=== PATIENT | female | born 1960 | race Caucasian/White ===

== ENCOUNTER 2020-07-17 08:43 | Inpatient (IN) | payer MEDICAID ==
[~2020-07-17] VITALS: Ht 157.5 cm; Wt 94.8 kg
[2020-07-17 10:55] LABS: BASOPHILS % 0.3 % (0.0-2.0); EOSINOPHILS % 0.7 % (0.0-5.0); HEMOGLOBIN. 11.9 g/dL (12.0-16.0); LYMPHOCYTES % 45.1 % (20.0-50.0); MEAN CORPUSCULAR HEMOGLOBIN 25.9 pg (28.0-32.0); MEAN CORPUSCULAR VOLUME 80.8 fL (81.0-99.0); MEAN PLATELET VOLUME 9.4 fl (7.4-10.4); MONOCYTES % 4.9 % (2.0-8.0); PLATELET 220 x1000/uL (130-400); RED BLOOD CELL COUNT 4.58 mill/uL (4.2-5.4); RED CELL DISTRIBUTION WIDTH 14.3 % (11.6-14.6)
[2020-07-17 11:00] LABS: CHLORIDE 108 mEq/L (98-107)
[2020-07-17 11:05] LABS: PROTHROMBIN TIME 10.7 sec (9.6-11.0)
[2020-07-17] MEDS ORDERED: BENAZEPRIL 10MG TABLET PO ONE (11:45)
[2020-07-17] MEDS ORDERED: HYDRALAZINE 20MG/ML VIAL IV PRN (15:00)
[2020-07-17 17:06] VITALS: BP 168/70
[2020-07-17] MEDS ORDERED: DOCUSATE SODIUM 100MG CAPSULE PO PRN (17:15)
[2020-07-17] MEDS ORDERED: IPRATROPIUM/ALBUTEROL 0.5-3(2.5)MG/3ML NEB HHN PRN (17:15)
[2020-07-17] MEDS ORDERED: HYDROCODONE/ACETAMINOPHEN 5/325MG TABLET PO PRN (17:15)
[2020-07-17] MEDS ORDERED: ONDANSETRON HCL 4MG/2ML INJ IV PRN (17:15)
[2020-07-17] MEDS ORDERED: LORAZEPAM 0.5MG TABLET PO PRN (17:15)
[2020-07-17] MEDS ORDERED: ACETAMINOPHEN 325MG TABLET PO PRN (17:15)
[2020-07-17] MEDS: NIFEDIPINE XL 30MG TAB PO SCH (18:15)
[2020-07-17] MEDS: CLONIDINE 0.1MG TABLET PO PRN (18:19)
[2020-07-17] MEDS ORDERED: HYDRALAZINE 10 MG in SODIUM CHLORIDE 0.9% 49.5 ML IV PRN (19:00)
[2020-07-17 20:00] VITALS: BP 130/66
[2020-07-17 22:09] LABS: TOTAL IRON BINDING CAPACITY 417 ug/dL (250-450)
[2020-07-17 22:24] LABS: FOLIC ACID (FOLATE) SERUM >20 ng/mL ng/mL (>5.38)
[2020-07-17 22:31] LABS: FERRITIN 219 ng/mL (10-291)
[2020-07-17 22:35] LABS: VITAMIN B12 SERUM 689 pg/mL (211-911)
[2020-07-17] MEDS ORDERED: IOHEXOL-300 100 ML BOTTLE ONE (23:12)
[2020-07-18 00:30] VITALS: BP 139/65
[2020-07-18 04:00] VITALS: BP 134/67
[2020-07-18] MEDS ORDERED: BENA5TAB6 MT (04:20)
[2020-07-18] MEDS ORDERED: CLON0.1T MT (04:20)
[2020-07-18] MEDS ORDERED: ATOR10TA69 MT (04:20)
[2020-07-18] MEDS ORDERED: ASPI-1497 MT (04:20)
[2020-07-18 07:13] LABS: BASOPHILS % 0.3 % (0.0-2.0); EOSINOPHILS % 1.2 % (0.0-5.0); HEMATOCRIT. 31.7 % (36.0-48.0); HEMOGLOBIN. 10.4 g/dL (12.0-16.0); LYMPHOCYTES % 42.1 % (20.0-50.0); MEAN CORPUSCULAR HEMOGLOBIN 26.2 pg (28.0-32.0); MEAN CORPUSCULAR VOLUME 79.7 fL (81.0-99.0); MEAN PLATELET VOLUME 9.1 fl (7.4-10.4); MONOCYTES % 6.2 % (2.0-8.0); NEUTROPHILS % 50.2 % (40.0-76.0); PLATELET 195 x1000/uL (130-400); RED BLOOD CELL COUNT 3.98 mill/uL (4.2-5.4); RED CELL DISTRIBUTION WIDTH 14.2 % (11.6-14.6)
[2020-07-18 07:24] LABS: CHLORIDE 106 mEq/L (98-107)
[2020-07-18 07:36] LABS: HDL CHOLESTEROL 43 mg/dL (40-59)
[2020-07-18 07:37] LABS: LDL CHOLESTEROL 123 mg/dL (5-100)
[2020-07-18 08:00] VITALS: BP 129/65
[2020-07-18] MEDS: NIFEDIPINE XL 30MG TAB PO SCH (09:00)
[2020-07-18 12:00] VITALS: BP 153/72
[2020-07-18] MEDS ORDERED: IRON SUCROSE COMPLEX 100 MG/5 ML ML IV SCH (14:06)
[2020-07-18 16:00] VITALS: BP 158/72
[2020-07-18 20:00] VITALS: BP 162/71
[2020-07-18] MEDS: HYDROCORTISONE ACETATE 25MG SUPP PR SCH (21:24)
[2020-07-18] MEDS: ATORVASTATIN CALCIUM 10MG TABLET PO SCH (21:25)
[2020-07-18] MEDS: CLONIDINE 0.1MG TABLET PO PRN (21:43)
[2020-07-19] VITALS: BP 140/66
[2020-07-19 04:00] VITALS: BP 138/59
[2020-07-19 06:15] LABS: CHLORIDE 107 mEq/L (98-107)
[2020-07-19 06:24] LABS: BASOPHILS % 0.2 % (0.0-2.0); EOSINOPHILS % 1.2 % (0.0-5.0); HEMATOCRIT. 31.3 % (36.0-48.0); HEMOGLOBIN. 10.3 g/dL (12.0-16.0); LYMPHOCYTES % 49.1 % (20.0-50.0); MEAN CORPUSCULAR HEMOGLOBIN 26.2 pg (28.0-32.0); MEAN CORPUSCULAR VOLUME 79.3 fL (81.0-99.0); MEAN PLATELET VOLUME 9.3 fl (7.4-10.4); MONOCYTES % 5.3 % (2.0-8.0); NEUTROPHILS % 44.2 % (40.0-76.0); PLATELET 200 x1000/uL (130-400); RED BLOOD CELL COUNT 3.94 mill/uL (4.2-5.4); RED CELL DISTRIBUTION WIDTH 13.8 % (11.6-14.6)
[2020-07-19 06:26] LABS: PROTHROMBIN TIME 10.6 sec (9.6-11.0)
[2020-07-19 08:00] VITALS: BP 148/67
[2020-07-19] MEDS: HYDROCORTISONE ACETATE 25MG SUPP PR SCH ×2 (09:38→22:29)
[2020-07-19] MEDS: NIFEDIPINE XL 30MG TAB PO SCH (10:04)
[2020-07-19] MEDS: CLONIDINE 0.1MG TABLET PO PRN (11:44)
[2020-07-19 12:00] VITALS: BP 114/84
[2020-07-19 16:00] VITALS: BP 135/75
[2020-07-19] MEDS ORDERED: DEXTROSE 50% WATER 50ML SYRINGE IV PRN (17:30)
[2020-07-19] MEDS: INSULIN LISPRO (LOW DOSE) 100 UNITS/ML SUBCUT SCH ×2 (17:50→22:28)
[2020-07-19] MEDS: BISACODYL 5MG TABLET PO SCH (17:58)
[2020-07-19] MEDS ORDERED: SORBITOL 70% SOLN 30ML PO SCH ×2 (18:00→22:00)
[2020-07-19] MEDS: METOCLOPRAMIDE HCL 10MG/2ML VIAL IV SCH ×2 (18:32→22:29)
[2020-07-19 20:00] VITALS: BP 143/70
[2020-07-19] MEDS: BLOOD SUGAR DIAGNOSTIC STRIP TEST SCH (21:00)
[2020-07-19] MEDS: ATORVASTATIN CALCIUM 10MG TABLET PO SCH (22:29)
[2020-07-20] VITALS: BP 149/64
[2020-07-20] MEDS: SODIUM CHLORIDE 0.9% 1,000 ML IV SCH ×2 (01:36→14:02)
[2020-07-20] MEDS: METOCLOPRAMIDE HCL 10MG/2ML VIAL IV SCH ×2 (01:37→05:49)
[2020-07-20] MEDS ORDERED: SORBITOL 70% SOLN 30ML PO SCH ×2 (02:00→06:00)
[2020-07-20 04:00] VITALS: BP 127/58
[2020-07-20] MEDS ORDERED: POTASSIUM CHLORIDE 20MEQ TABLET SR PO NR (06:00)
[2020-07-20 06:56] LABS: BASOPHILS % 0.2 % (0.0-2.0); EOSINOPHILS % 0.8 % (0.0-5.0); HEMATOCRIT. 33.5 % (36.0-48.0); HEMOGLOBIN. 11.1 g/dL (12.0-16.0); LYMPHOCYTES % 41.5 % (20.0-50.0); MEAN CORPUSCULAR HEMOGLOBIN 26.4 pg (28.0-32.0); MEAN CORPUSCULAR VOLUME 79.4 fL (81.0-99.0); MONOCYTES % 5.5 % (2.0-8.0); PLATELET 264 x1000/uL (130-400); RED BLOOD CELL COUNT 4.22 mill/uL (4.2-5.4); RED CELL DISTRIBUTION WIDTH 13.8 % (11.6-14.6)
[2020-07-20] MEDS: BLOOD SUGAR DIAGNOSTIC STRIP TEST SCH ×4 (07:20→21:00)
[2020-07-20 07:58] LABS: CHLORIDE 110 mEq/L (98-107)
[2020-07-20 08:00] VITALS: BP 136/74
[2020-07-20] MEDS: HYDROCORTISONE ACETATE 25MG SUPP PR SCH ×2 (08:39→21:00)
[2020-07-20] MEDS: BISACODYL 5MG TABLET PO SCH (08:39)
[2020-07-20] MEDS: NIFEDIPINE XL 30MG TAB PO SCH (08:40)
[2020-07-20] MEDS: INSULIN LISPRO (LOW DOSE) 100 UNITS/ML SUBCUT SCH ×4 (08:44→22:40)
[2020-07-20] MEDS ORDERED: SODIUM CHLORIDE 0.9% 10ML VIAL ONE (12:00)
[2020-07-20] MEDS ORDERED: FENTANYL CITRATE/PF 50MCG/ML 2ML VIAL IV PRN (12:00)
[2020-07-20] MEDS ORDERED: MIDAZOLAM HCL 5 MG/5 ML VIAL IV PRN (12:01)
[2020-07-20] MEDS ORDERED: MIDAZOLAM HCL 5 MG/5 ML VIAL ONE (12:03)
[2020-07-20] MEDS ORDERED: FENTANYL CITRATE/PF 50MCG/ML 2ML VIAL ONE (12:03)
[2020-07-20] MEDS ORDERED: SIMETHICONE 40 MG/0.6 ML 30ML ONE (12:05)
[2020-07-20 16:00] VITALS: BP 165/74
[2020-07-20] MEDS: CLONIDINE 0.1MG TABLET PO PRN (17:31)
[2020-07-20 20:00] VITALS: BP 133/65
[2020-07-20] MEDS: ATORVASTATIN CALCIUM 10MG TABLET PO SCH (22:28)
[2020-07-21] VITALS: BP 143/66
[2020-07-21] MEDS: SODIUM CHLORIDE 0.9% 1,000 ML IV SCH (03:40)
[2020-07-21 04:00] VITALS: BP 158/66
[2020-07-21] MEDS: BLOOD SUGAR DIAGNOSTIC STRIP TEST SCH ×2 (06:23→11:29)
[2020-07-21 08:00] VITALS: BP 140/76
[2020-07-21] MEDS: BISACODYL 5MG TABLET PO SCH (09:06)
[2020-07-21] MEDS: NIFEDIPINE XL 30MG TAB PO SCH (09:07)
[2020-07-21] MEDS: HYDROCORTISONE ACETATE 25MG SUPP PR SCH (09:07)
[2020-07-21] MEDS: INSULIN LISPRO (LOW DOSE) 100 UNITS/ML SUBCUT SCH ×2 (09:12→12:01)
[2020-07-21 12:00] VITALS: BP 154/61
[2020-07-21] MEDS ORDERED: NIFE-33 PO (12:19)
[2020-07-21] MEDS ORDERED: DOCU100T MT (12:19)
[2020-07-21] MEDS ORDERED: METF-414 MT (12:20)
[2020-07-21] MEDS ORDERED: ATOR40TA70 MT (12:21)
[2020-07-21 13:44] VITALS: BP 145/60
[2020-07-21] MEDS: CLONIDINE 0.1MG TABLET PO PRN (15:08)
[2020-07-21 16:15] VITALS: BP 145/72
== END 2020-07-21 16:20 | disposition home or self-care (01) | DRG 199 ==
LOC: ER 08:43 → 6EST 12:28 → EDBEDREQTM 12:36 → ENRESERV 14:11
PROVIDERS: ADMIT Internal Medicine Nephrology; ATTEND Internal Medicine
PROC: 0DB78ZX Excision of Stomach, Pylorus, Via Natural or Artificial Opening Endoscopic, Diagnostic (ICD-10-PCS; principal; 2020-07-20)
PROC: 0DBK8ZZ Excision of Ascending Colon, Via Natural or Artificial Opening Endoscopic (ICD-10-PCS; 2020-07-20)
PROC: 0DJD8ZZ Inspection of Lower Intestinal Tract, Via Natural or Artificial Opening Endoscopic (ICD-10-PCS; 2020-07-20)
PROC: 0DBK8ZX Excision of Ascending Colon, Via Natural or Artificial Opening Endoscopic, Diagnostic (ICD-10-PCS; 2020-07-20)
DX: I16.1 Hypertensive emergency (principal); E11.65 Type 2 diabetes mellitus with hyperglycemia; K64.8 Other hemorrhoids; K63.5 Polyp of colon; D50.9 Iron deficiency anemia, unspecified; K56.41 Fecal impaction; E66.9 Obesity, unspecified; E78.5 Hyperlipidemia, unspecified; I10 Essential (primary) hypertension; Z20.822 Contact with and (suspected) exposure to COVID-19; K57.90 Diverticulosis of intestine, part unspecified, without perforation or abscess without bleeding; K29.70 Gastritis, unspecified, without bleeding; Z91.14 Patient's other noncompliance with medication regimen; Z88.5 Allergy status to narcotic agent; Z79.899 Other long term (current) drug therapy; Z79.82 Long term (current) use of aspirin; Z87.891 Personal history of nicotine dependence; Z90.710 Acquired absence of both cervix and uterus; Z68.38 Body mass index [BMI] 38.0-38.9, adult; Z79.84 Long term (current) use of oral hypoglycemic drugs
CPT/HCPCS: 36415; 74177; 80048; 80053; 80061; 82270; 82607; 82728; 82746; 82962; 83036; 83540; 83550; 84443; 85025; 85044; 85651; 87426; 88304; 88305; 88312; 88313; 93005; 99152; 99285; J0360; J1815; J2250; J2765; J3010; Q9967; G0500